=== PATIENT | male | born 1960 | race African-American/Black ===

== ENCOUNTER 2017-11-07 18:01 | Inpatient (IN) | payer OTHER ==
[~2017-11-07] VITALS: Ht 185.4 cm; Wt 87.5 kg
[~2017-11-07 18:01] MED LIST: ASPIR 8181 MG ORAL; LISINOPRIL2.5 MG ORAL; LR 1000ml 1,000 ML IV STA; Morphine Sulfate 4mg/ml Inj IVP ONE
--- NOTE | 2017-11-07 18:08 | Emergency Room Report ---
History of Present Illness General Chief Complaint: General Complaint Source: Patient, EMS Present Illness HPI Patient presents with vomiting abdominal pain and shoulder pain is begun for couple days, but worsened today. Constant and severe. He's been vomiting without any coffee grounds or blood. He's had this problem in the past and needed to be admitted for diabetic ketoacidosis. He did take his insulin this morning - the full doses. He's unable to keep down fluids at this time. Denies any fevers or chills. No productive cough, sore throat, rashes, headaches, dysuria, change in bowels, unusual foods, travel or ill contacts. He takes insulin. Retinopathy and neuropathy. H/O HTN. Denies prior cardiac disease. Allergies: Coded Allergies: No Known Allergies (Unverified , 11/07/17) Patient History Past Medical History: see triage record Social History: Reports: drug use - THC, Denies: smoking, alcohol use Social History Narrative from home Reviewed Nursing Documentation: PMH: Agreed, PSxH: Agreed Nursing Documentation-PMH Hx Hypertension: Yes Hx Diabetes: Yes - Diabetic ketoacidosis Review of Systems All Other Systems: negative except mentioned in HPI Physical Exam Vital Signs Date Time Temp Pulse Resp B/P (MAP) Pulse Ox O2 Delivery O2 Flow Rate FiO2 11/07/17 18:48 98.9 89 18 142/78 99 Room Air Sp02 EP Interpretation: reviewed, normal General Appearance: alert, GCS 15, mild distress, thin, other - vomiting Head: normocephalic, atraumatic Eyes: bilateral eye PERRL, bilateral eye Scleral Injection ENT: moist mucus membranes Neck: supple Respiratory: lungs clear, normal breath sounds, other - deep respirations Cardiovascular #1: regular rate, rhythm, no edema Cardiovascular #2: 2+ radial (R) Gastrointestinal: normal inspection, normal bowel sounds, non tender, no mass, non-distended, scaphoid Musculoskeletal: back normal, gait/station normal, normal range of motion Neurologic: alert, oriented x3, grossly normal Psychiatric: mood/affect normal Skin: normal inspection, warm/dry Procedures Critical Care Time Critical Care Time Total Critical Care Time: 30 min bedside evaluation and treatment excludes procedures (EKGs). Reason for critical care: hyperglycemia, NSTEMI Possible complications: hypotension, hypertension, TN, shock, arrhythmias, metabolic acidosis, end organ damage, respiratory failure, evaluation of hyperglycemia. Interventions: IV insulin, aspirin, metoprolol, analgesia, discussion with Ihsan MOLINA, repeated evaluations Course: Patient presented with vomiting in mild resp distress. Improved with treatment. + troponin. Repeat EKG - NSTEMI. Treated. Repeat glucose treated. Several discussions regarding transfer with decision to keep the patient. Consultations: nursing staff, EMS, Ihsan MOLINA, admitting MD Performed by: Dr. Aguirre Tolerated well condition = serious Medical Decision Making Diagnostic Impression: Primary Impression: NSTEMI (non-ST elevated myocardial infarction) Additional Impressions: Hyperglycemia Vomiting Qualified Codes: R11.14 - Bilious vomiting Elevated lactic acid level Renal insufficiency ER Course This diabetic patient presents with vomiting, abdominal pain and chest pain. Differential includes diabetic ketoacidosis, hyperglycemia, occult infection, acute myocardial infarction, gastroparesis amongst others. The patient is fairly ill at this time and needs to have emergent evaluation with EKG, labs, chest x-ray abdominal films. Will be treated with IV hydration and also repeated Accu-Cheks. In addition the patient will be treated for pain. EKG without injury. Called with + troponin. Aspirin ordered as well as repeat EKG. Patient states pain is better. Metoprolol and IV insulin ordered. Other labs with bicarb 19, elevated lactic acid, renal insufficiency. EKG #2 NSR LAE, No acute changes. Repeat troponin requested by Dr. Youngblood (even though < 2 hours). Several discussions regarding potential transfer. [facility] data processing control clerk refused transfer. Dr. Baig contacted. Bolus insulin and long acting insulin ordered as glucose still elevated. Though bicarb 19, no evidence of significant DKA. Lovenox ordered by Dr. Lea and signed out to him. Laboratory Tests Test 11/07/17 18:16 11/07/17 19:00 White Blood Count 7.0 K/UL (4.8-10.8) Red Blood Count 4.39 M/UL (4.70-6.10) L Hemoglobin 13.0 G/DL (14.2-18.0) L Hematocrit 42.1 % (42.0-52.0) Mean Corpuscular Volume 96 FL (80-99) Mean Corpuscular Hemoglobin 29.5 PG (27.0-31.0) Mean Corpuscular Hemoglobin Concent 30.8 G/DL (32.0-36.0) L Red Cell Distribution Width 12.8 % (11.6-14.8) Platelet Count 132 K/UL (150-450) L Mean Platelet Volume 9.5 FL (6.5-10.1) Neutrophils (%) (Auto) 84.7 % (45.0-75.0) H Lymphocytes (%) (Auto) 10.5 % (20.0-45.0) L Monocytes (%) (Auto) 4.0 % (1.0-10.0) Eosinophils (%) (Auto) 0.1 % (0.0-3.0) Basophils (%) (Auto) 0.7 % (0.0-2.0) Urine Color Pale yellow Urine Appearance Clear Urine pH 5 (4.5-8.0) Urine Specific [place] 1.015 (1.005-1.035) Urine Protein 1+ (NEGATIVE) H Urine Glucose (UA) 4+ (NEGATIVE) H Urine Ketones 4+ (NEGATIVE) H Urine Occult Blood Negative (NEGATIVE) Urine Nitrite Negative (NEGATIVE) Urine Bilirubin Negative (NEGATIVE) Urine Urobilinogen Normal MG/DL (0.0-1.0) Urine Leukocyte Esterase Negative (NEGATIVE) Urine RBC 0-2 /HPF (0 - 0) H Urine WBC 0-2 /HPF (0 - 0) Urine Squamous Epithelial Cells Occasional /LPF Urine Bacteria Few /HPF (NONE) Sodium Level 137 MMOL/L (136-145) Potassium Level 4.3 MMOL/L (3.5-5.1) Chloride Level 99 MMOL/L (98-107) Carbon Dioxide Level 19 MMOL/L (21-32) L Anion Gap 20 mmol/L (5-15) H Blood Urea Nitrogen 28 mg/dL (7-18) H Creatinine 1.6 MG/DL (0.55-1.30) H Estimate Glomerular Filtration Rate 44.6 mL/min (>60) Glucose Level 486 MG/DL (74-106) H Lactic Acid Level 3.40 mmol/L (0.66-2.22) H 3.10 mmol/L (0.66-2.22) H Calcium Level 9.8 MG/DL (8.5-10.1) Magnesium Level 2.1 MG/DL (1.8-2.4) Total Bilirubin 0.7 MG/DL (0.2-1.0) Aspartate Amino Transferase (AST) 28 U/L (15-37) Alanine Aminotransferase (ALT) 23 U/L (12-78) Alkaline Phosphatase 95 U/L (46-116) Troponin I 0.083 ng/mL (0.000-0.056) Total Protein 7.8 G/DL (6.4-8.2) Albumin 4.0 G/DL (3.4-5.0) Globulin 3.8 g/dL Albumin/Globulin Ratio 1.1 (1.0-2.7) Lipase 191 U/L (73-393) Urine Opiates Screen Negative (NEGATIVE) Urine Barbiturates Screen Negative (NEGATIVE) Phencyclidine (PCP) Screen Negative (NEGATIVE) Urine Amphetamines Screen Negative (NEGATIVE) Urine Benzodiazepines Screen Negative (NEGATIVE) Urine Cocaine Screen Negative (NEGATIVE) Urine Marijuana (THC) Screen Positive (NEGATIVE) H Acetone Level Positive-moderate (NEGATIVE) EKG Diagnostic Results Rate: normal Rhythm: NSR ST Segments: no acute changes Rhythm Strip Diag. Results EP Interpretation: yes Rhythm: NSR, no PVC's, no ectopy Chest X-Ray Diagnostic Results Chest X-Ray Diagnostic Results : Chest X-Ray Ordered: Yes # of Views/Limited/Complete: 1 View Indication: Chest Pain EP Interpretation: Yes Interpretation: no consolidation, no effusion, no pneumothorax, no acute cardiopulmonary disease Impression: No acute disease Electronically Signed by: By fawn Other X-Ray Diagnostic Results Other X-Ray Diagnostic Results : X-Ray ordered: abd # of Views/Limited Vs Complete: 1 View Indication: Other EP Interpretation: Yes Interpretation: nonspecific bowel gas, no sbo, other - no masses Impression: No acute disease Electronically Signed by: Electronically signed by Vikash Aguirre MD Last Vital Signs Date Time Temp Pulse Resp B/P (MAP) Pulse Ox O2 Delivery O2 Flow Rate FiO2 11/07/17 20:48 98.1 81 17 133/74 99 Room Air Status: improved Disposition: ADMITTED INPATIENT Condition: Critical Vikash Aguirre M.D. Nov 07, 2017 18:08
[2017-11-07 18:31] LABS: APPEARANCE,URINE CLEAR; BILIRUBIN, URINE NEGATIVE (NEGATIVE); COLOR,URINE PALE YELLOW; GLUCOSE, URINE (UA) 4+ (NEGATIVE); KETONES,URINE 4+ (NEGATIVE); LEUKOCYTE ESTERASE ,URINE NEGATIVE (NEGATIVE); NITRITE,URINE NEGATIVE (NEGATIVE); PH,URINE 5 (4.5-8.0); PROTEIN,URINE 1+ (NEGATIVE); UROBILINOGEN,URINE NORMAL MG/DL (0.0-1.0)
[2017-11-07 18:33] LABS: BASOPHILS % (AUTO) 0.7 % (0.0-2.0); EOSINOPHILS % (AUTO) 0.1 % (0.0-3.0); HEMATOCRIT 42.1 % (42.0-52.0); LYMPHOCYTES % (AUTO) 10.5 % (20.0-45.0); MEAN CORPUSCULAR VOLUME 96 FL (80-99); NEUTROPHILS % (AUTO) 84.7 % (45.0-75.0); PLATELET COUNT 132 K/UL (150-450); RED BLOOD COUNT 4.39 M/UL (4.70-6.10); RED CELL DISTRIBUTION WIDTH 12.8 % (11.6-14.8)
[2017-11-07 18:39] LABS: ANION GAP 20 mmol/L (5-15); BLOOD UREA NITROGEN 28 mg/dL (7-18); CALCIUM 9.8 MG/DL (8.5-10.1); CARBON DIOXIDE 19 MMOL/L (21-32); CHLORIDE 99 MMOL/L (98-107); CREATININE 1.6 MG/DL (0.55-1.30); POTASSIUM 4.3 MMOL/L (3.5-5.1); SODIUM 137 MMOL/L (136-145)
[2017-11-07 18:44] LABS: ALANINE AMINOTRANSFERASE 23 U/L (12-78); ALBUMIN/GLOBULIN RATIO 1.1 (1.0-2.7); ALKALINE PHOSPHATASE 95 U/L (46-116); ASPARTATE AMINO TRANSFERASE 28 U/L (15-37); BILIRUBIN,TOTAL 0.7 MG/DL (0.2-1.0)
[2017-11-07 18:48] VITALS: BP 142/78
[2017-11-07] MEDS ORDERED: Metoprolol 5mg/5ml Inj IVP STA (18:58)
[2017-11-07 20:48] VITALS: BP 133/74
[2017-11-07 21:49] LABS: ANION GAP 16 mmol/L (5-15); BLOOD UREA NITROGEN 26 mg/dL (7-18); CARBON DIOXIDE 19 MMOL/L (21-32); CHLORIDE 104 MMOL/L (98-107); CREATININE 1.4 MG/DL (0.55-1.30); POTASSIUM 4.4 MMOL/L (3.5-5.1); SODIUM 139 MMOL/L (136-145)
[2017-11-07 22:48] VITALS: BP 137/69
[2017-11-07] MEDS ORDERED: Levemir Flexpen SUBQ STA (23:48)
[2017-11-08] VITALS (7 sets, daily range): BP systolic 120–149; BP diastolic 66–91
[2017-11-08] MEDS ORDERED: Enoxaparin 100mg Inj SUBQ ONE (00:15)
[2017-11-08] MEDS ORDERED: Nitroglycerin Subl 0.4mg tab SL PRN (05:45)
[2017-11-08 07:13] LABS: BASOPHILS % (AUTO) 0.6 % (0.0-2.0); EOSINOPHILS % (AUTO) 0.1 % (0.0-3.0); HEMATOCRIT 39.8 % (42.0-52.0); HEMOGLOBIN 12.7 G/DL (14.2-18.0); LYMPHOCYTES % (AUTO) 10.1 % (20.0-45.0); MEAN CORPUSCULAR VOLUME 96 FL (80-99); NEUTROPHILS % (AUTO) 83.2 % (45.0-75.0); PLATELET COUNT 151 K/UL (150-450); RED BLOOD COUNT 4.14 M/UL (4.70-6.10); WHITE BLOOD COUNT 9.6 K/UL (4.8-10.8)
[2017-11-08 07:27] LABS: ALANINE AMINOTRANSFERASE 26 U/L (12-78); ALBUMIN 3.6 G/DL (3.4-5.0); ALKALINE PHOSPHATASE 92 U/L (46-116); ANION GAP 15 mmol/L (5-15); ASPARTATE AMINO TRANSFERASE 23 U/L (15-37); BILIRUBIN,TOTAL 0.7 MG/DL (0.2-1.0); BLOOD UREA NITROGEN 27 mg/dL (7-18); CALCIUM 9.5 MG/DL (8.5-10.1); CARBON DIOXIDE 19 MMOL/L (21-32); CHLORIDE 102 MMOL/L (98-107); CREATININE 1.5 MG/DL (0.55-1.30); SODIUM 136 MMOL/L (136-145)
[2017-11-08 07:53] LABS: CHOLESTEROL 179 MG/DL (< 200); HDL CHOLESTEROL 88 MG/DL (40-60); TRIGLYCERIDES 63 MG/DL (30-150)
[2017-11-08] MEDS ORDERED: Heparin 25,000u/D5W 500ml 500 ML IV SCH ×2 (08:00→12:00)
[2017-11-08] MEDS: NovoLOG Insulin Flexpen SUBQ SCH ×4 (08:06→22:22)
--- NOTE | 2017-11-08 09:37 | Cardiac Electrophysiology PN ---
Subjective Subjective Cardiology consult dictated. [id number] Objective Last 24 Hour Vital Signs Date Time Temp Pulse Resp B/P (MAP) Pulse Ox O2 Delivery O2 Flow Rate FiO2 11/08/17 04:03 89 11/08/17 04:00 98.4 77 20 149/83 98 Room Air 11/08/17 02:05 98.5 88 16 131/61 99 Room Air 11/08/17 00:48 98.5 82 16 120/66 99 Room Air 11/07/17 22:48 98.5 85 16 137/69 99 Room Air 11/07/17 20:48 98.1 81 17 133/74 99 Room Air 11/07/17 19:13 88 149/75 11/07/17 18:48 98.9 89 18 142/78 99 Room Air Intake and Output 11/07/17 11/08/17 19:00 07:00 Intake Total 1350 ml Output Total 250 ml 400 ml Balance -250 ml 950 ml Intake IV Total 1000 ml Other 350 ml Output Urine Total 250 ml 300 ml Emesis 100 ml # Voids 1 Laboratory Tests Test 11/07/17 18:16 11/07/17 19:00 11/07/17 21:15 11/08/17 07:00 White Blood Count 7.0 K/UL (4.8-10.8) 9.6 K/UL (4.8-10.8) Red Blood Count 4.39 M/UL (4.70-6.10) L 4.14 M/UL (4.70-6.10) L Hemoglobin 13.0 G/DL (14.2-18.0) L 12.7 G/DL (14.2-18.0) L Hematocrit 42.1 % (42.0-52.0) 39.8 % (42.0-52.0) L Mean Corpuscular Volume 96 FL (80-99) 96 FL (80-99) Mean Corpuscular Hemoglobin 29.5 PG (27.0-31.0) 30.6 PG (27.0-31.0) Mean Corpuscular Hemoglobin Concent 30.8 G/DL (32.0-36.0) L 31.8 G/DL (32.0-36.0) L Red Cell Distribution Width 12.8 % (11.6-14.8) 13.0 % (11.6-14.8) Platelet Count 132 K/UL (150-450) L 151 K/UL (150-450) Mean Platelet Volume 9.5 FL (6.5-10.1) 8.6 FL (6.5-10.1) Neutrophils (%) (Auto) 84.7 % (45.0-75.0) H 83.2 % (45.0-75.0) H Lymphocytes (%) (Auto) 10.5 % (20.0-45.0) L 10.1 % (20.0-45.0) L Monocytes (%) (Auto) 4.0 % (1.0-10.0) 6.0 % (1.0-10.0) Eosinophils (%) (Auto) 0.1 % (0.0-3.0) 0.1 % (0.0-3.0) Basophils (%) (Auto) 0.7 % (0.0-2.0) 0.6 % (0.0-2.0) Urine Color Pale yellow Urine Appearance Clear Urine pH 5 (4.5-8.0) Urine Specific [place] 1.015 (1.005-1.035) Urine Protein 1+ (NEGATIVE) H Urine Glucose (UA) 4+ (NEGATIVE) H Urine Ketones 4+ (NEGATIVE) H Urine Occult Blood Negative (NEGATIVE) Urine Nitrite Negative (NEGATIVE) Urine Bilirubin Negative (NEGATIVE) Urine Urobilinogen Normal MG/DL (0.0-1.0) Urine Leukocyte Esterase Negative (NEGATIVE) Urine RBC 0-2 /HPF (0 - 0) H Urine WBC 0-2 /HPF (0 - 0) Urine Squamous Epithelial Cells Occasional /LPF Urine Bacteria Few /HPF (NONE) Sodium Level 137 MMOL/L (136-145) 139 MMOL/L (136-145) 136 MMOL/L (136-145) Potassium Level 4.3 MMOL/L (3.5-5.1) 4.4 MMOL/L (3.5-5.1) 5.0 MMOL/L (3.5-5.1) Chloride Level 99 MMOL/L (98-107) 104 MMOL/L (98-107) 102 MMOL/L (98-107) Carbon Dioxide Level 19 MMOL/L (21-32) L 19 MMOL/L (21-32) L 19 MMOL/L (21-32) L Anion Gap 20 mmol/L (5-15) H 16 mmol/L (5-15) H 15 mmol/L (5-15) Blood Urea Nitrogen 28 mg/dL (7-18) H 26 mg/dL (7-18) H 27 mg/dL (7-18) H Creatinine 1.6 MG/DL (0.55-1.30) H 1.4 MG/DL (0.55-1.30) H 1.5 MG/DL (0.55-1.30) H Estimat Glomerular Filtration Rate 44.6 mL/min (>60) 52.1 mL/min (>60) 58.3 mL/min (>60) Glucose Level 486 MG/DL (74-106) H 353 MG/DL (74-106) #H 380 MG/DL (74-106) H Lactic Acid Level 3.40 mmol/L (0.66-2.22) H 3.10 mmol/L (0.66-2.22) H Calcium Level 9.8 MG/DL (8.5-10.1) 9.0 MG/DL (8.5-10.1) 9.5 MG/DL (8.5-10.1) Magnesium Level 2.1 MG/DL (1.8-2.4) 2.0 MG/DL (1.8-2.4) Total Bilirubin 0.7 MG/DL (0.2-1.0) 0.7 MG/DL (0.2-1.0) Aspartate Amino Transf (AST/SGOT) 28 U/L (15-37) 23 U/L (15-37) Alanine Aminotransferase (ALT/SGPT) 23 U/L (12-78) 26 U/L (12-78) Alkaline Phosphatase 95 U/L (46-116) 92 U/L (46-116) Troponin I 0.083 ng/mL (0.000-0.056) 0.102 ng/mL (0.000-0.056) 0.129 ng/mL (0.000-0.056) Total Protein 7.8 G/DL (6.4-8.2) 7.3 G/DL (6.4-8.2) Albumin 4.0 G/DL (3.4-5.0) 3.6 G/DL (3.4-5.0) Globulin 3.8 g/dL 3.7 g/dL Albumin/Globulin Ratio 1.1 (1.0-2.7) 1.0 (1.0-2.7) Lipase 191 U/L (73-393) Urine Opiates Screen Negative (NEGATIVE) Urine Barbiturates Screen Negative (NEGATIVE) Phencyclidine (PCP) Screen Negative (NEGATIVE) Urine Amphetamines Screen Negative (NEGATIVE) Urine Benzodiazepines Screen Negative (NEGATIVE) Urine Cocaine Screen Negative (NEGATIVE) Urine Marijuana (THC) Screen Positive (NEGATIVE) H Acetone Level Positive-moderate (NEGATIVE) Activated Partial Thromboplast Time 33 SEC (23-33) Triglycerides Level 63 MG/DL (30-150) Cholesterol Level 179 MG/DL (< 200) LDL Cholesterol 87 mg/dL (<100) HDL Cholesterol 88 MG/DL (40-60) H Cholesterol/HDL Ratio 2.0 (3.3-4.4) AICHA CARLOS Nov 08, 2017 09:36
[2017-11-08] MEDS: Metoprolol 25mg tab ORAL SCH ×2 (10:10→21:09)
[2017-11-08] MEDS: Heparin 5000 units/ml inj SUBQ SCH ×3 (10:11→21:09)
--- NOTE | 2017-11-08 11:22 | Diagnostic Imaging Report ---
Indication: Abdominal pain Comparison: None Single view of the abdomen obtained Findings: Bowel gas pattern is nonspecific. No mass, ectopic calcifications, or abnormal gas collections are identified. Degenerative changes of the lower lumbar spine and both hips are noted. Impression: No acute findings
--- NOTE | 2017-11-08 11:23 | Diagnostic Imaging Report ---
Indication: Dyspnea Comparison: None A single view chest radiograph was obtained. Findings: Cardiomediastinal appearance is within normal limits for age. Pulmonary vascularity is appropriate. The diaphragmatic contour is smooth and costophrenic angles are sharp. No pleural effusions are identified. The bones are unremarkable. Impression: No acute findings
--- NOTE | 2017-11-08 13:14 | History & Physical ---
History and Physical History & Physicial Dictated for Int Med-Dr Baig.[id number]. SERGO LOZANO Nov 08, 2017 13:14
--- NOTE | 2017-11-08 13:23 | Consultation ---
History of Present Illness General Date patient seen: Nov 08, 2017 Chief Complaint: General Complaint Referring physician: Dr. Lopez Reason for Consultation: inpatient management Present Illness HPI 57 year old male with hx of DM, HTN, presented to ER with vomiting abdominal pain for couple days, but worsened today. Constant and severe. He's been vomiting without any coffee grounds or blood. He's unable to keep down fluids at this time. Denies any fevers or chills. N Allergies: Coded Allergies: No Known Allergies (Unverified , 11/07/17) Medication History Scheduled Aspirin* (Aspir 81*), 81 MG ORAL DAILY, (Reported) Lisinopril* (Lisinopril*), 2.5 MG ORAL DAILY, (Reported) Patient History Healthcare decision maker Resuscitation status Full Code Advanced Directive on File No Past Medical/Surgical History Past Medical/Surgical History: (1) Diabetes mellitus (2) Hypertension (3) Renal insufficiency Review of Systems Constitutional: Reports: no symptoms Eye: Reports: no symptoms ENT: Reports: no symptoms Physical Exam General Appearance: WD/WN, no apparent distress Lines, tubes and drains: peripheral, central line HEENT: normocephalic, anicteric Neck: normal alignment Respiratory/Chest: chest wall non-tender, lungs clear Cardiovascular/Chest: normal peripheral pulses, regular rhythm Abdomen: normal bowel sounds Genitourinary/Rectal: normal genital exam Last 24 Hour Vital Signs Date Time Temp Pulse Resp B/P (MAP) Pulse Ox O2 Delivery O2 Flow Rate FiO2 11/08/17 10:10 75 146/83 11/08/17 04:03 89 11/08/17 04:00 98.4 77 20 149/83 98 Room Air 11/08/17 02:05 98.5 88 16 131/61 99 Room Air 11/08/17 00:48 98.5 82 16 120/66 99 Room Air 11/07/17 22:48 98.5 85 16 137/69 99 Room Air 11/07/17 20:48 98.1 81 17 133/74 99 Room Air 11/07/17 19:13 88 149/75 11/07/17 18:48 98.9 89 18 142/78 99 Room Air Intake and Output 11/07/17 11/08/17 19:00 07:00 Intake Total 1350 ml Output Total 250 ml 400 ml Balance -250 ml 950 ml Intake IV Total 1000 ml Other 350 ml Output Urine Total 250 ml 300 ml Emesis 100 ml # Voids 1 Laboratory Tests Test 11/07/17 18:16 11/07/17 19:00 11/07/17 21:15 11/08/17 07:00 White Blood Count 7.0 K/UL (4.8-10.8) 9.6 K/UL (4.8-10.8) Red Blood Count 4.39 M/UL (4.70-6.10) L 4.14 M/UL (4.70-6.10) L Hemoglobin 13.0 G/DL (14.2-18.0) L 12.7 G/DL (14.2-18.0) L Hematocrit 42.1 % (42.0-52.0) 39.8 % (42.0-52.0) L Mean Corpuscular Volume 96 FL (80-99) 96 FL (80-99) Mean Corpuscular Hemoglobin 29.5 PG (27.0-31.0) 30.6 PG (27.0-31.0) Mean Corpuscular Hemoglobin Concent 30.8 G/DL (32.0-36.0) L 31.8 G/DL (32.0-36.0) L Red Cell Distribution Width 12.8 % (11.6-14.8) 13.0 % (11.6-14.8) Platelet Count 132 K/UL (150-450) L 151 K/UL (150-450) Mean Platelet Volume 9.5 FL (6.5-10.1) 8.6 FL (6.5-10.1) Neutrophils (%) (Auto) 84.7 % (45.0-75.0) H 83.2 % (45.0-75.0) H Lymphocytes (%) (Auto) 10.5 % (20.0-45.0) L 10.1 % (20.0-45.0) L Monocytes (%) (Auto) 4.0 % (1.0-10.0) 6.0 % (1.0-10.0) Eosinophils (%) (Auto) 0.1 % (0.0-3.0) 0.1 % (0.0-3.0) Basophils (%) (Auto) 0.7 % (0.0-2.0) 0.6 % (0.0-2.0) Urine Color Pale yellow Urine Appearance Clear Urine pH 5 (4.5-8.0) Urine Specific [place] 1.015 (1.005-1.035) Urine Protein 1+ (NEGATIVE) H Urine Glucose (UA) 4+ (NEGATIVE) H Urine Ketones 4+ (NEGATIVE) H Urine Occult Blood Negative (NEGATIVE) Urine Nitrite Negative (NEGATIVE) Urine Bilirubin Negative (NEGATIVE) Urine Urobilinogen Normal MG/DL (0.0-1.0) Urine Leukocyte Esterase Negative (NEGATIVE) Urine RBC 0-2 /HPF (0 - 0) H Urine WBC 0-2 /HPF (0 - 0) Urine Squamous Epithelial Cells Occasional /LPF Urine Bacteria Few /HPF (NONE) Sodium Level 137 MMOL/L (136-145) 139 MMOL/L (136-145) 136 MMOL/L (136-145) Potassium Level 4.3 MMOL/L (3.5-5.1) 4.4 MMOL/L (3.5-5.1) 5.0 MMOL/L (3.5-5.1) Chloride Level 99 MMOL/L (98-107) 104 MMOL/L (98-107) 102 MMOL/L (98-107) Carbon Dioxide Level 19 MMOL/L (21-32) L 19 MMOL/L (21-32) L 19 MMOL/L (21-32) L Anion Gap 20 mmol/L (5-15) H 16 mmol/L (5-15) H 15 mmol/L (5-15) Blood Urea Nitrogen 28 mg/dL (7-18) H 26 mg/dL (7-18) H 27 mg/dL (7-18) H Creatinine 1.6 MG/DL (0.55-1.30) H 1.4 MG/DL (0.55-1.30) H 1.5 MG/DL (0.55-1.30) H Estimat Glomerular Filtration Rate 44.6 mL/min (>60) 52.1 mL/min (>60) 58.3 mL/min (>60) Glucose Level 486 MG/DL (74-106) H 353 MG/DL (74-106) #H 380 MG/DL (74-106) H Lactic Acid Level 3.40 mmol/L (0.66-2.22) H 3.10 mmol/L (0.66-2.22) H Calcium Level 9.8 MG/DL (8.5-10.1) 9.0 MG/DL (8.5-10.1) 9.5 MG/DL (8.5-10.1) Magnesium Level 2.1 MG/DL (1.8-2.4) 2.0 MG/DL (1.8-2.4) Total Bilirubin 0.7 MG/DL (0.2-1.0) 0.7 MG/DL (0.2-1.0) Aspartate Amino Transf (AST/SGOT) 28 U/L (15-37) 23 U/L (15-37) Alanine Aminotransferase (ALT/SGPT) 23 U/L (12-78) 26 U/L (12-78) Alkaline Phosphatase 95 U/L (46-116) 92 U/L (46-116) Troponin I 0.083 ng/mL (0.000-0.056) 0.102 ng/mL (0.000-0.056) 0.129 ng/mL (0.000-0.056) Total Protein 7.8 G/DL (6.4-8.2) 7.3 G/DL (6.4-8.2) Albumin 4.0 G/DL (3.4-5.0) 3.6 G/DL (3.4-5.0) Globulin 3.8 g/dL 3.7 g/dL Albumin/Globulin Ratio 1.1 (1.0-2.7) 1.0 (1.0-2.7) Lipase 191 U/L (73-393) Urine Opiates Screen Negative (NEGATIVE) Urine Barbiturates Screen Negative (NEGATIVE) Phencyclidine (PCP) Screen Negative (NEGATIVE) Urine Amphetamines Screen Negative (NEGATIVE) Urine Benzodiazepines Screen Negative (NEGATIVE) Urine Cocaine Screen Negative (NEGATIVE) Urine Marijuana (THC) Screen Positive (NEGATIVE) H Acetone Level Positive-moderate (NEGATIVE) Activated Partial Thromboplast Time 33 SEC (23-33) Triglycerides Level 63 MG/DL (30-150) Cholesterol Level 179 MG/DL (< 200) LDL Cholesterol 87 mg/dL (<100) HDL Cholesterol 88 MG/DL (40-60) H Cholesterol/HDL Ratio 2.0 (3.3-4.4) L Height (Feet): 6 Height (Inches): 1.00 Weight (Pounds): 193 Medications Current Medications Medications (Trade) Dose Ordered Sig/Luis Route PRN Reason Start Time Stop Time Status Last Admin Dose Admin Atorvastatin Calcium (Lipitor) 10 mg BEDTIME ORAL 11/08/17 21:00 12/08/17 20:59 Dextrose (Dextrose 50%) STAT PRN IV Hypoglycemia 11/08/17 06:15 12/08/17 06:14 Heparin Sodium (Porcine) (Heparin 5000 units/ml) 5,000 units EVERY 8 HOURS SUBQ 11/08/17 09:00 12/08/17 08:59 11/08/17 10:11 Insulin Aspart (NovoLOG) BEFORE MEALS AND HS SUBQ 11/08/17 06:30 12/08/17 06:29 11/08/17 12:19 Metoprolol Tartrate (Lopressor) 25 mg EVERY 12 HOURS ORAL 11/08/17 11:00 12/08/17 10:59 11/08/17 10:10 Nitroglycerin (Ntg) 0.4 mg Q5M PRN SL Prn Chest Pain 11/08/17 05:45 12/08/17 05:44 Ondansetron HCl (Zofran) 4 mg Q4H PRN IVP Nausea & Vomiting 11/08/17 08:45 12/08/17 08:44 11/08/17 10:09 Pantoprazole (Protonix) 40 mg BID ORAL 11/08/17 09:00 12/08/17 08:59 11/08/17 10:09 Prochlorperazine (Compazine) 10 mg Q6H PRN IVP Nausea & Vomiting 11/08/17 09:00 12/08/17 08:59 Assessment/Plan Problem List: (1) Uncontrolled diabetes mellitus ICD Codes: E11.65 - Type 2 diabetes mellitus with hyperglycemia SNOMED: 65607601, 196999120 (2) NSTEMI (non-ST elevated myocardial infarction) ICD Codes: I21.4 - Non-ST elevation (NSTEMI) myocardial infarction SNOMED: 144762161 (3) Renal insufficiency ICD Codes: N28.9 - Disorder of kidney and ureter, unspecified SNOMED: 793699948, 706882056 (4) Diabetes mellitus ICD Codes: E11.9 - Type 2 diabetes mellitus without complications SNOMED: 10822680 (5) Elevated troponin ICD Codes: R74.8 - Abnormal levels of other serum enzymes SNOMED: 113905797, 726978193, 251008556 (6) Hypertension ICD Codes: I10 - Essential (primary) hypertension SNOMED: 36818993 Assessment/Plan iv fluids sliding sclae check electroltyes renal studies echo cardiology f/u pt is stable to be transferred to [facility]. NITA SIMON Nov 08, 2017 13:23
[2017-11-08 13:54] LABS: CREATINE KINASE 203 U/L (26-308)
--- NOTE | 2017-11-08 15:29 | Cardiology Report ---
APPROVED REPORT EXAM: Two-dimensional and M-mode echocardiogram with Doppler and color Doppler. INDICATION Elevated Troponin M-Mode DIMENSIONS IVSd1.4 (0.7-1.1cm)Left Atrium (MM)4.6 (1.6-4.0cm) LVDd4.2 (3.5-5.6cm)Aortic Root2.9 (2.0-3.7cm) PWd1.6 (0.7-1.1cm)Aortic Cusp Exc.2.5 (1.5-2.0cm) LVDs1.7 (2.5-4.0cm) PWs3.1 cm Normal left ventricular chamber size, systolic function and wall motion. Left ventricular ejection fraction estimated to be 60 %. Mild left ventricular hypertrophy. No evidence of pericardial effusion. Bi-atrial enlargement. Right ventricular chamber sizes is within normal limits. Focal aortic valve sclerosis with adequate cusp excursion. Thickened mitral valve leaflets with normal excursion. Mitral annulus and aortic root calcification. Normal pulmonic valve structure. Normal tricuspid valve structure. IVC dilated at 2.4 cm with physiologic collapse suggestive of increased RA pressure. A color flow and spectral Doppler study was performed and revealed: No aortic regurgitation. Moderate mitral regurgitation. Mitral diastolic velocities suggest mild left ventricular dysfunction (Grade I ). Mild tricuspid regurgitation. Tricuspid systolic velocities suggests peak right ventricular systolic pressure of 48 mmHg, consistent with moderate pulmonary hypertension. No pulmonic regurgitation present.
[2017-11-08 15:32] LABS: APPEARANCE,URINE CLEAR; BILIRUBIN, URINE NEGATIVE (NEGATIVE); COLOR,URINE PALE YELLOW; GLUCOSE, URINE (UA) 4+ (NEGATIVE); KETONES,URINE 3+ (NEGATIVE); LEUKOCYTE ESTERASE ,URINE 1+ (NEGATIVE); NITRITE,URINE NEGATIVE (NEGATIVE); PH,URINE 5 (4.5-8.0); PROTEIN,URINE 1+ (NEGATIVE); UROBILINOGEN,URINE NORMAL MG/DL (0.0-1.0)
--- NOTE | 2017-11-08 15:47 | Cardiology Report ---
APPROVED REPORT EKG Measurement Heart [id number] Normal sinus rhythm Possible Left atrial enlargement Borderline ECG
--- NOTE | 2017-11-08 18:17 | History and Physical Report ---
DATE OF ADMISSION: 11/07/2017 CHIEF COMPLAINT: The patient is a 57-year-old male, presents with chief complaint of intractable nausea and vomiting. HISTORY OF PRESENT ILLNESS: The patient states began yesterday, 11/07/2017. The patient began to experience nausea and vomiting. Initially, this was flu contents. Later on, it was yellow sort of bile looking material. The patient is a [facility] member. The patient was told there was no room at [place]. The patient then presented to [facility]. The patient was found to have fingerstick blood glucose of over 500. The patient was admitted for uncontrolled diabetes and intractable nausea and vomiting. PAST MEDICAL HISTORY: Significant for 1. Type 2 diabetes. 2. Hypertension. PAST SURGICAL HISTORY: Significant for umbilical hernia repair in 2016. CURRENT MEDICATIONS: 1. Aspirin 81 mg p.o. daily. 2. Lisinopril 2.5 mg p.o. daily. 3. The patient does not know the name of his diabetes medication. ALLERGIES: No known drug allergies. SOCIAL HISTORY: The patient is single and is on a leave of absence from the [facility]. The patient denies tobacco or alcohol use. REVIEW OF SYSTEMS: CONSTITUTIONAL: The patient denies weight loss or weight gain. The patient complains of subjective fevers and chills. HEENT: The patient denies ear or throat pain. The patient denies headache. CARDIOVASCULAR: The patient denies palpitations. The patient does complain of upper chest pain. ABDOMEN: The patient complains of intractable nausea and vomiting, as above. The patient denies hematemesis. The patient denies diarrhea or constipation. GENITOURINARY: The patient denies dysuria or increased frequency of urination. NEUROMUSCULAR: The patient denies seizures or generalized weakness. PHYSICAL EXAMINATION: VITAL SIGNS: Temperature 98.5 degrees, respirations 16, pulse 85, and blood pressure 137/69. GENERAL: The patient is well developed and well nourished male, in no apparent distress. HEENT: Eyes, pupils equal and responsive to light and accommodation. Extraocular movements are intact. NECK: Supple without lymphadenopathy. CHEST: Lungs are clear to auscultation bilaterally without wheezes or rales. CARDIOVASCULAR: Regular rate. S1 and S2 are normal without murmurs, rubs, or gallops. ABDOMEN: Soft, nontender, and nondistended. Positive bowel sounds. No evidence of hepatosplenomegaly. Currently, no rebound or guarding noted. EXTREMITIES: Negative for clubbing, cyanosis, or edema. RECTAL/GENITAL: Refused. NEUROLOGIC: Cranial nerves II through XII are grossly intact without focal deficits. Motor strength is 5/5 bilaterally. Deep tendon reflexes are 2+ plantar. LABORATORY AND DIAGNOSTIC DATA: A KUB of the abdomen showed no acute findings. Sodium 139, potassium 4.4, chloride 104, CO2 19, BUN 26, creatinine 1.4 and glucose 353. WBC 7.3, hemoglobin 13.0, hematocrit 42.1 and platelets 132,000. Troponin was elevated at 0.129. ASSESSMENT: This is a 57-year-old male. 1. Intractable nausea and vomiting. 2. Diabetes type 2. 3. Hypertension. 4. Elevated troponin. TREATMENT: 1. Nausea with vomiting. The patient is currently tolerating a clear liquid diet. The patient has been started empirically on Zofran. Intractable nausea and vomiting may be secondary to uncontrolled diabetes. 2. Diabetes type 2. The patient has been placed on a NovoLog sliding scale. 3. Hypertension. Continue lisinopril as above. 4. Elevated troponin. A Cardiology consultation will be obtained with Dr. Serafin Duque. Serial troponin levels will be performed. This may be acute myocardial infarction, as the patient has diabetes, which is a risk factor for coronary artery disease. Avinash Barrett M.D. DR: JENNIFER JOB#: [id number] CC:
--- NOTE | 2017-11-08 18:32 | Discharge Summary ---
Discharge Summary Hospital Course Date of Admission Nov 07, 2017 at 23:34 Date of Discharge Nov 08, 2017 Admitting Diagnosis SDU Reason for Hospitalization: elevated troponin, hyperglycemia, vomiting HPI Jamaal Villasenor is a 57 year old male who was admitted on Nov 07, 2017 at 23: 34 57 y/old male with PMH of HTN, DM, renal insufficiency, retinopathy and neuropathy presented with vomiting, abdominal pain for couple of days, symptoms getting worse, severe, constant emesis non bloody, no coffee ground emesis patient had similar symptoms in the past that require hospitalization for DKA patient reported compliance with insulin, took this am full dose of insulin patient was unable to keep down fuids at this time no fevers, no chills no productive cough, sore throat, rashes, headaches, dysuria, change in bowels, unusual foods, travel or ill contacts. denied prior cardiac history denied chest pain, shortness of breath Upon evaluation in the ER VS stable: pulse ox stable on RA, BP stable elevated troponin-0.083, two ECG done - no acute ischemic changes elevated lactic acid-3.4 anion gap -20; bicarb-19 glucose -486 no leukocytosis UA+4 ketones, +4 glucose, + 1 protein, pyuria BUN-28, creat-1.6 urine tox screen + marijuana patient was given ASA, Levemir started on IVF, bolus insulin, Levemir patient was admitted to [facility] since [facility] initially declined transfer Consultations cardio - dr Muñiz industrial arts teacher/seed sorter -dr Garcia Hospital Course patient admitted to [facility] started on generous IV hydration cardio and industrial arts teacher consults requested, seen and evaluated the patient ASA given in ED One dose of Lovenox given in ED started on beta lauryn Nitro prn ECHO with pEF serial troponin 0.083-0.102-0.129 ECG no acute ischemic changes telemetry no evidence of acute ischemia Lipid panel WNL on statin DVT prophylaxis O2 prn to keep sat above 92% BP stable with BB (JUSTIN from home held due to renal insufficiency) generous IV hydration BS management with sliding scale of insulin prn, improving Anion gap closed renal US done, results pending monitor renal parameters, lytes, avoid nephrotoxic patient with hx of renal insufficiency a/emetic prn GI prophylaxis started on diet as tolerated ECG: Normal sinus rhythm Possible Left atrial enlargement Borderline ECG CXR: Cardiomediastinal appearance is within normal limits for age. Pulmonary vascularity is appropriate. The diaphragmatic contour is smooth and costophrenic angles are sharp. No pleural effusions are identified. The bones are unremarkable. Impression: No acute findings Abdominal X ray:Bowel gas pattern is nonspecific. No mass, ectopic calcifications, or abnormal gas collections are identified. Degenerative changes of the lower lumbar spine and both hips are noted. Impression: No acute findings ECHO- Normal left ventricular chamber size, systolic function and wall motion. Left ventricular ejection fraction estimated to be 60 %. Mild left ventricular hypertrophy. No evidence of pericardial effusion. Bi-atrial enlargement. Right ventricular chamber sizes is within normal limits. Focal aortic valve sclerosis with adequate cusp excursion. Thickened mitral valve leaflets with normal excursion. Mitral annulus and aortic root calcification. Normal pulmonic valve structure. Normal tricuspid valve structure. IVC dilated at 2.4 cm with physiologic collapse suggestive of increased RA pressure. A color flow and spectral Doppler study was performed and revealed: No aortic regurgitation. Moderate mitral regurgitation. Mitral diastolic velocities suggest mild left ventricular dysfunction (Grade I ) . Mild tricuspid regurgitation. Tricuspid systolic velocities suggests peak right ventricular systolic pressure of 48 mmHg, consistent with moderate pulmonary hypertension. No pulmonic regurgitation present. Materials Supervisor cleared patient for transfer to [facility] via [facility] ambulance continue IVF 1/2 NS at 150 last BS-[id number] FINAL DIAGNOSIS DM out of control elevated troponin possible NSTEMI HTN Renal insufficiency Discharge Medications New Medications: Atorvastatin Calcium* (Lipitor*) 10 Mg Tablet 10 MG ORAL BEDTIME, #10 TAB Heparin Sod (Porcine) (Heparin Sodium*) 5 000/1 Ml Vial 5000 UNITS SUBQ EVERY 8 HOURS, #9 VIAL Insulin Aspart (Novolog Flexpen) 100 Unit/1 Ml Insuln.pen 0 UNITS SUBQ BEFORE MEALS AND HS, #1 SYR Metoprolol Tartrate (Metoprolol Tartrate) 25 Mg Tablet 25 MG ORAL EVERY 12 HOURS, #10 TAB Nitroglycerin (Nitrostat) 0.4 Mg Tab.subl 0.4 MG SL Q5M PRN, #10 TAB Ondansetron* (Zofran*) 4 Mg/2 Ml Vial 4 MG IVP Q4H PRN, #10 VIAL Pantoprazole* (Protonix*) 40 Mg Tablet.dr 40 MG ORAL BID, #10 TAB Prochlorperazine Edisylate* (Compazine*) 10 Mg/2 Ml Vial 10 MG IVP Q6H PRN, #5 VIAL [D50w] () 50 ML SOLN 0 ML IV STAT PRN, #1 Continued Medications: Aspirin* (Aspir 81*) 81 Mg Tablet.dr 81 MG ORAL DAILY, TAB Discontinued Medications: Lisinopril* (Lisinopril*) 2.5 Mg Tablet 2.5 MG ORAL DAILY, TAB 0 Refills Discharge Condition Upon Discharge: stable Discharge Disposition Patient was transferred to [facility] as r insurance purposes Discharge Diagnoses: Discharge Instructions Discharge Instructions Special Instructions I have been assigned to complete a D/C Summary on this account. I was not involved in the patient management Sonja Escalona NP ([place]) Nov 08, 2017 18:32
[2017-11-08] MEDS ORDERED: 1/2 NS 1000ml IV ONE (23:31)
--- NOTE | 2017-11-09 07:45 | Consultation ---
DATE OF CONSULTATION: 11/08/2017 CARDIOLOGY CONSULTATION CONSULTING PHYSICIAN: Serafin Duque M.D. REFERRING PHYSICIAN: Adis Baig M.D. REASON FOR CONSULTATION: Elevated troponin and hypertension. HISTORY OF PRESENT ILLNESS: The patient is a 57-year-old gentleman with history of hypertension and diabetes, came to the emergency room for abdominal pain and vomiting. The patient denies any coffee-ground emesis. The patient has history of diabetic ketoacidosis in the past. He took his insulin in the morning. The patient also has elevated troponin. The patient was admitted to [facility] and a cardiology consultation was obtained for further evaluation. It is of note that the patient's EKG showed normal sinus rhythm with left atrial enlargement and first-degree AV block, but no acute ST-T wave abnormalities. REVIEW OF SYSTEMS: Review of systems was performed and was negative other than what was mentioned in the history of present illness. Currently denies any chest pain, having echocardiogram done. PAST MEDICAL HISTORY: 1. Hypertension. 2. Diabetes, on insulin. 3. Retinopathy. 4. Neuropathy. ALLERGIES: He has no known drug allergies. SOCIAL HISTORY: Uses marijuana. Denies smoking, drinking alcohol, or use of any drugs. Lives at home. FAMILY HISTORY: Noncontributory. PHYSICAL EXAMINATION: VITAL SIGNS: Blood pressure 142/78, pulse 89, respirations 18, and temperature is 98.9. HEAD AND NECK: Showed no JVD. LUNGS: Clear. CARDIOVASCULAR: Regular S1 and S2 with no gallop or murmur. ABDOMEN: Soft and nontender. EXTREMITIES: No pitting edema. LABORATORY DATA: His labs show white count of 9.6, hemoglobin of 12.7, hematocrit 39.8, and platelet count of 151,000. Sodium 136, potassium is 5, BUN of 27, creatinine of 1.5, and glucose of 380. Troponins 0.208, 0.102, and 0.129. ASSESSMENT AND PLAN: 1. 03:07. The patient does not have any chest pain; however, this is likely due to the patient's renal failure and creatinine of 1.6. His EKG showed no acute ischemic changes. The echocardiogram at the bedside showed ejection fraction of 55%. We will keep the patient on aspirin and Lipitor, check fasting lipid profile, add a small dose of beta-lauryn. 2. Hypertension. Start low-dose beta-lauryn. If completely ruled out for myocardial infarction, we will switch to JUSTIN inhibitor, which is beneficial for his diabetes, however, 04:08 renal function. 3. Renal failure. Creatinine is 1.6. 4. Diabetes with history of diabetic ketoacidosis. Blood glucose is still not controlled with glucose of 380. 5. Nausea and vomiting could be due to early diabetic ketoacidosis. Further evaluation by Gastroenterology. 6. The patient had elevated lactic acid level. Thank you very much, Dr. Baig, for allowing me to participate in the care of this patient. Please do not hesitate to contact for any questions regarding my evaluation. Serafin Duque M.D. DR: PHIL JOB#: [id number] CC:
--- NOTE | 2017-11-09 09:48 | Diagnostic Imaging Report ---
Indication:Elevated Bun and Creatinine. Technique: Grayscale and duplex Doppler imaging of the kidneys performed. Comparison: None Findings: The size, contour, and echogenicity of both kidneys are within normal limits. Both kidneys measure between 10 and 11 cm. There is no hydronephrosis. The IVC and urinary bladder are unremarkable. Impression: Negative exam
--- NOTE | 2017-11-09 12:39 | Cardiology Report ---
APPROVED REPORT EKG Measurement Heart [id number] Sinus rhythm with premature supraventricular complexes Otherwise normal ECG
== END 2017-11-08 23:32 | disposition short-term general hospital (02) | DRG 637 ==
LOC: EDBD 18:01 → EMR 18:48 → 2W 23:34 → EDBEDREQ 11-08 01:01
DX: E11.65 Type 2 diabetes mellitus with hyperglycemia (principal); I21.4 Non-ST elevation (NSTEMI) myocardial infarction; E11.40 Type 2 diabetes mellitus with diabetic neuropathy, unspecified; I10 Essential (primary) hypertension; N28.9 Disorder of kidney and ureter, unspecified; Z79.4 Long term (current) use of insulin; E11.319 Type 2 diabetes mellitus with unspecified diabetic retinopathy without macular edema; I34.0 Nonrheumatic mitral (valve) insufficiency; I36.1 Nonrheumatic tricuspid (valve) insufficiency; I27.20 Pulmonary hypertension, unspecified
CPT/HCPCS: 36415; 71045; 74018; 76775; 80048; 80053; 80061; 80307; 81001; 81003; 82009; 82550; 82962; 83605; 83690; 83735; 84133; 84300; 84484; 84550; 85025; 85730; 87086; 89050; 93005; 93306; J1815; J2405; S5561